=== PATIENT | male | born 1935 | race Caucasian/White ===

== ENCOUNTER 2017-07-22 19:22 | Emergency (ER) | payer MEDICARE, BC, OTHER, SELFPAY ==
[2017-07-22 19:44] VITALS: BP 170/78; PULSE 68; RESP 20; TEMP 37.3; O2SAT 99; BMI 24.3
[2017-07-22 21:12] LABS: BUN Creatinine Ratio 8.9 (6-22); Calcium 8.8 mg/dL (8.4-10.2); Estimated Glomerular Filt Rate 21.8 mL/min (>60); Glucose 77 mg/dL (80-110); HEMOLYSIS < 15 (0-50); Potassium 3.8 mmol/L (3.4-5.1); Sodium 142 mmol/L (137-145)
[2017-07-22 21:16] LABS: Add Manual Diff / Slide Review NO; Basophils Percent Auto 1.1 % (0-2); Eosinophils Percent Auto 3.6 % (2-4); Hematocrit 21.4 % (41-53); Hemoglobin 7.5 g/dL (13.5-17.5); Lymphocytes Percent Auto 16.5 % (25-40); Mean Corpuscular Hemoglobin 32.2 PG (26-34); Mean Corpuscular Volume 92.1 fL (80-100); Monocytes Percent Auto 7.9 % (3-14); Neutrophils Absolute Auto 5500 /uL (3000-5900); Neutrophils Percent Auto 70.9 % (50-75); Platelet Count 64 X10^3/uL (150-400); Red Blood Cell Count 2.33 X10^6/uL (4.5-5.9); Red Cell Distribution Width 19.1 % (11.6-14.8); White Blood Cell Count 7.8 X10^3/uL (4.5-11.0)
[2017-07-22 22:00] VITALS: BP 156/67; PULSE 73; RESP 16; TEMP 36.4
[2017-07-22 22:22] VITALS: BP 150/74; PULSE 94; RESP 16; TEMP 36.9
[2017-07-22 23:15] VITALS: BP 165/76; PULSE 75; RESP 16; TEMP 36.8
[2017-07-23 00:21] VITALS: BP 150/71; PULSE 69; RESP 16; O2SAT 93
[2017-07-23 00:49] VITALS: BP 153/68; PULSE 69; RESP 16; O2SAT 94
--- NOTE | 2017-07-23 01:33 | ED.WEAKNESS ---
HPI - Weakness General Chief complaint: Weakness Stated complaint: RENAL DIALYSIS PT LOW HEMOGLOBIN TEST TODAY History of Present Illness HPI Narrative: HPI 82-year-old male with chronic anemia secondary to CKD now on M// HD presents for transfusion after a hemoglobin from HD was resulted at 6; endorses gradually progressive fatigue. No apparent dark tarry stools, no chest pain, shortness breath, history of DVT or PE. M/S/F/SocHx notable for: please see HPI; remainder reviewed with patient and in chart. ROS: Negative constitutional, eye, cardiovascular, pulmonary, GI, , MSK, skin, neurologic, psychiatric, endocrine unless noted in the HPI. Exam Gen: Pleasant, non-toxic appearing, resting comfortably. HEENT: NC, AT, PEERL, EOMI. Resp: Clear to auscultation bilaterally, normal work of breathing, no accessory muscle usage. Card: Regular rate and rhythm with no murmurs, rubs, or gallops, extremities warm and well perfused. GI: Non-tender to palpation throughout all quadrants, no focal tenderness at McBurney's point, negative Pnadya's sign, non-distended, no rebound or guarding. : No suprapubic tenderness to palpation. MSK: No visible deformities, strength and tone without visually appreciable deficit. Skin: markedly pale skin, otherwise color with no visible lesions. Neuro: AO x 3, no facial asymmetry, vision and hearing WNL. Psych: Mood and affect appropriate. Labs / Imaging: WBC 10.8, HB 7.5, sodium 142, potassium 3.2. MDM Previous chart, nursing note, labs, imaging, and vitals reviewed. A: 82-year-old male with chronic anemia secondary to CKD now on M/W/F HD presents for transfusion after a hemoglobin from HD was resulted at 6; endorses gradually progressive fatigue. DDx & Evaluation: patient with symptomatic anemia, based upon recent, and still pertinent labs, when unit PRBCs was given, pretransfusion hemoglobin resulted at 7.5. No further PRBCs given. Patient discharged with PCP follow-up for further management of chronic anemia. Given history with an absence of chest pain, shortness breath, cough, or dyspnea on exertion as well as gradual progressive weakness consistent with the patient's long-standing pattern of weakness in the setting of anemia no further emergent evaluation located. Further evaluation deferred to the patient's PCP. Impression: anemia. (please reference below for remainder of encounter information) Related Data Home Medications Medication Instructions Recorded Confirmed allopurinol 150 mg PO Q DAY #0 10/10/12 lansoprazole 30 mg PO AMCC #0 10/10/12 sildenafil [Viagra] 100 mg PO QDAYP #0 10/10/12 nitroglycerin [Nitrostat] 0.4 mg SUBLINGUAL PRN PRN #0 tab 12/17/12 calcitriol 0.5 mcg PO QDAY #0 08/07/16 sodium bicarbonate 650 mg PO #0 04/24/17 Allergies Allergy/AdvReac Type Severity Reaction Status Date / Time Iodinated Contrast- Oral and Allergy Severe kidney Verified 07/22/17 19:50 IV Dye failure [IODINATED CONTRAST MEDIA - ORAL AND] oxycodone Allergy Mild face Verified 07/22/17 19:50 flushed, feels funny lisinopril AdvReac Severe COUGH, Verified 07/22/17 19:50 facial swelling PFSH Medical History Colon cancer (Acute) HTN (hypertension) (Acute) Kidney failure (Acute) Surgical History History of open heart surgery (Acute) Social History Smoking Status: Never smoker Exam Initial Vital Signs Initial Vital Signs: Vital Signs Temperature 99.2 F 07/22/17 19:44 Pulse Rate 68 07/22/17 19:44 Respiratory Rate 20 07/22/17 19:44 Blood Pressure 170/78 H 07/22/17 19:44 Pulse Oximetry 99 07/22/17 19:44 Course Orders Ordered: ED Orders 07/22/17 19:40 Basic Metabolic Panel Stat Complete Blood Count AUTO DIFF Stat Packed Cells Urgent Type and Screen Urgent Vital Signs - 8 hr 07/22/17 19:44 07/22/17 22:00 07/22/17 22:22 Temperature 99.2 F 97.5 F L 98.4 F Pulse Rate 68 73 94 H Respiratory Rate 20 16 16 Blood Pressure 170/78 H 156/67 H 150/74 H Blood Pressure [Left Arm] Pulse Oximetry 99 07/22/17 23:15 07/23/17 00:21 07/23/17 00:49 Temperature 98.2 F Pulse Rate 75 69 69 Respiratory Rate 16 16 16 Blood Pressure 165/76 H 153/68 H Blood Pressure [Left Arm] 150/71 H Pulse Oximetry 93 94 MDM - Weakness Lab Data Result diagrams: 07/22/17 19:40 07/22/17 19:40 Lab Results 07/22/17 07/22/17 07/22/17 Range/Units 19:40 19:40 19:40 WBC 7.8 (4.5-11.0) X10^3/uL RBC 2.33 L (4.5-5.9) X10^6/uL Hgb 7.5 L (13.5-17.5) g/dL Hct 21.4 L (41-53) % MCV 92.1 (80-100) fL MCH 32.2 (26-34) PG MCHC 35.0 (30-36) % RDW 19.1 H (11.6-14.8) % Plt Count 64 L (150-400) X10^3/uL Neut % (Auto) 70.9 (50-75) % Lymph % (Auto) 16.5 L (25-40) % Prentiss % (Auto) 7.9 (3-14) % Eos % (Auto) 3.6 (2-4) % Baso % (Auto) 1.1 (0-2) % Neut # (Auto) 5500 (9238-8306) /uL Sodium 142 (137-145) mmol/L Potassium 3.8 (3.4-5.1) mmol/L Chloride 101.0 (98-107) mmol/L Carbon Dioxide 28.0 (22-32) mmol/L BUN 25.0 H (9-20) mg/dL Creatinine 2.80 H (0.66-1.25) mg/dL Estimated GFR 21.8 L (>60) mL/min BUN/Creatinine Ratio 8.9 (6-22) Glucose 77 L (80-110) mg/dL Calcium 8.8 (8.4-10.2) mg/dL Blood Type A Positive Antibody Screen Negative Crossmatch (AHG) See Detail Discharge Plan Departure Patient Disposition: Home, Self-Care Clinical Impression: Anemia Discharge Date/Time: 07/23/17 00:51 Interventions: ED Discharge Assessment Last Done: 07/23/17 00:49 Activity Restrictions/Additional Instructions: You were in seen in the [facility] Emergency Department for evaluation of anemia. You were found to be anemic and on the threshold of requiring a blood transfusion. Please follow-up with your primary care provider within 24-48 hours for further evaluation and care. Please read and follow all of the instructions below. If you have any new symptoms or if you are at all concerned about your health please return immediately to the emergency department. If you do not have a primary care physician, please contact [facility], [facility] at [phone], [facility] at [phone], or [facility] at [phone] to arrange follow up care. If you have health insurance, please also contact your insurer for a list of accepting providers under your policy, you may contact these providers for further health care. Your care today was limited to identifying and treating emergent medical problems only. Many people have subtle differences in their test results that require follow up with their outpatient physician(s) to correctly determine if this represents a normal variation or concerning abnormality with respect to your specific health. The care given to you today was limited to identifying and treating emergent medical problems - you need to request a copy of all of your medical records from today's visit and follow up with your outpatient physician(s) to review both today's visit and your overall health. Prescriptions: No Action allopurinol 300 MG tablet 150 mg PO Q DAY Qty: 0 RF: 0 sildenafil [Viagra] 100 MG tablet 100 mg PO QDAYP Qty: 0 RF: 0 lansoprazole 30 MG capsule,delayed release(DR/EC) 30 mg PO AMCC Qty: 0 RF: 0 nitroglycerin [Nitrostat] 0.4 MG tablet, sublingual 0.4 mg Sublingual PRN PRNQty: 0 RF: 0 calcitriol 0.5 MCG capsule 0.5 mcg PO QDAY Qty: 0 RF: 0 sodium bicarbonate 650 MG tablet 650 mg PO Qty: 0 RF: 0
== END 2017-07-23 00:51 | disposition home or self-care (01) ==
PROVIDERS: Emergency Provider Emergency Medicine; Family Provider Internal Medicine; PCP Internal Medicine
DX: D64.9 Anemia, unspecified (principal)
CPT/HCPCS: 36430; 36591; 80048; 85025; 86850; 86900; 86901; 93005; 99282; 99283; P9016

== ENCOUNTER 2017-07-24 04:56 | Emergency (ER) | payer MEDICARE, BC, OTHER, SELFPAY ==
[2017-07-24] VITALS (8 sets, daily range): BP systolic 131–167; BP diastolic 69–80; PULSE 74–89; RESP 19–27; TEMP 36.9; O2SAT 98–100
--- NOTE | 2017-07-24 05:22 | ED.SOB ---
HPI - SOB/Dyspnea General Chief Complaint: Upper Respiratory Symptoms Stated Complaint: Difficulty Breathing Time Seen by Provider: 07/24/17 05:03 Source: patient and EMS Mode of arrival: EMS Limitations: no limitations History of Present Illness 82-year-old male presents to the emergency department today via EMS with a chief complaint of significant shortness of breath, worsening over the evening. 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 Mccollum at [facility]. He was seen and evaluated here 2 days ago under similar circumstances and was found to have a hemoglobin 6, he then received transfusion and went on his way. The patient states that historically he had received weekly infusions of Aranesp during dialysis and his baseline hemoglobin was 11. For some reason, he has not received this infusion in quite sometime. He was found by EMS to be quite SOB and had SpO2 in mid 80s, which quickly improved with application of NC at 2L/min. MD Complaint: shortness of breath Onset (ago): hour(s) Severity: moderate Consistency/Duration: constant Relieving factors: oxygen Exacerbating factors: lying flat Associated symptoms: denies other symptoms Treatment prior to arrival: oxygen Related Data Home oxygen amount: none Home Medications Medication Instructions Recorded Confirmed allopurinol 150 mg PO Q DAY #0 10/10/12 lansoprazole 30 mg PO [facility] #0 10/10/12 sildenafil [Viagra] 100 mg PO QDAYP #0 10/10/12 nitroglycerin [Nitrostat] 0.4 mg SUBLINGUAL PRN PRN #0 tab 12/17/12 calcitriol 0.5 mcg PO QDAY #0 08/07/16 sodium bicarbonate 650 mg PO #0 04/24/17 Allergies Allergy/AdvReac Type Severity Reaction Status Date / Time Iodinated Contrast- Oral and Allergy Severe kidney Verified 07/22/17 19:50 IV Dye failure [IODINATED CONTRAST MEDIA - ORAL AND] oxycodone Allergy Mild face Verified 07/22/17 19:50 flushed, feels funny lisinopril AdvReac Severe COUGH, Verified 07/22/17 19:50 facial swelling Review of Systems Review of Systems All systems reviewed & are unremarkable except as noted in HPI and below Constitutional Denies chills, Denies fever(s), Denies lethargy and Denies weakness Eyes Denies change in vision, Denies eye discharge, Denies irritation and Denies loss of vision ENT Ears, Nose, Mouth, and Throat: Denies change in voice, Denies neck pain and Denies sore throat Cardiovascular Denies chest pain, Denies irregular heart rhythm, Denies lightheadedness, Denies palpitations, Reports dyspnea, Reports dyspnea on exertion and Denies orthopnea Respiratory Denies cough, Reports dyspnea, Reports dyspnea on exertion and Denies wheezing Gastrointestinal Gastrointestinal: Denies abdominal pain, Denies change in bowel habits, Denies diarrhea, Denies nausea and Denies vomiting Genitourinary Denies hematuria, Denies flank pain, Denies urinary incontinence and Denies urinary urgency Musculoskeletal Denies neck pain Integumentary/Breasts Denies pruritus, Denies erythema, Denies rash and Denies wounds Neurologic Denies confusion, Denies loss of vision and Denies weakness Psychiatric Denies anxiety, Denies confusion, Denies depression, Denies homicidal ideation and Denies suicidal ideation Endocrine Denies palpitations Hematologic/Lymphatic Denies easy bruising Allergic/Immunologic Denies wheezing PFSH Medical History CAD (coronary artery disease) (Acute) Colon cancer (Acute) HTN (hypertension) (Acute) Kidney failure (Acute) Surgical History Hx of CABG (Acute) History of open heart surgery (Acute) Social History Smoking Status: Never smoker Exam Initial Vital Signs Initial Vital Signs: Vital Signs Temperature 98.5 F 07/24/17 05:10 Pulse Rate 89 07/24/17 05:10 Respiratory Rate 24 07/24/17 05:10 Blood Pressure 166/76 H 07/24/17 05:10 Pulse Oximetry 99 07/24/17 05:10 Const General: cooperative, comfortable, well developed and in distress Nutritional Appearance: well nourished Orientation: alert, awake, oriented x3 and not confused [facility] Head: normocephalic and atraumatic Ears: external ears normal and TM's normal bilaterally Nose: external nose normal and No nasal discharge Face and sinus: sinuses nontender, face symmetric, no sinus tenderness and No dry mucous membranes Mouth: oral mucosae normal and moist mucous membranes Teeth and gingiva: dentition normal Throat: tonsils normal and uvula midline Eyes General: appearance normal, both eyes and all related structures Eyelids: eyelids normal Conjunctivae: conjunctival abnormality (pale) bilaterally Sclera: sclerae normal Pupils: PERRL EOM: EOM intact bilaterally Neck Neck: normal visual inspection, trachea midline, No lymphadenopathy, No midline deformity and No JVD Lymphatic: No lymphedema Resp Effort & Inspection: normal respiratory effort, able to speak in complete sentences, no respiratory distress and no use of accessory muscles Auscultation: diminished lung sounds, rales bilaterally, no rhonchi and no wheezes Cardio Rate: regular rate Rhythm: regular rhythm Heart Sounds: no click, no gallops, no murmurs and no rubs Pulses: normal peripheral pulses GI Inspection: non-distended Palpation: soft, no hepatosplenomegaly, No guarding, No pulsatile mass and No tender Auscultation: normal bowel sounds Back/Spine/Pelvis Back: No CVA tenderness Cervical Spine: cervical ROM normal and No pain with cervical ROM Thoracic/Lumbar Spine: thoracic and lumbar spine normal to inspection Skin General: no rashes or lesions noted, No jaundice and No petechiae Neuro General: alert, oriented x3, gait normal and no focal motor deficits Speech: speech normal Extrem General: full ROM, no clubbing, cyanosis or edema, no pedal edema and no calf tenderness Course Orders Ordered: ED Orders 07/24/17 05:25 B Type Natriuretic Peptide Stat Basic Metabolic Panel Stat Complete Blood Count AUTO DIFF Stat Magnesium Stat Procalcitonin Stat Troponin with CK Cardiac Panel Stat Type and Screen Stat 07/24/17 05:32 EKG-12 Lead Stat 07/24/17 06:00 XR chest 1V Stat Reevaluation(s) Reevaluation #1: call to Dr. Mccollum (nephrology) whom recommends hospitalization for stablization of his acute failure. There are no beds a [facility] nor [facility] and as the result we called [facility]'s Consultations Consultation #1: Call to Dr. Mccollum nephrology regarding this patient. He is happy with Hgb of 8.2 but recommends HD given signs of fluid overload and his baseline schedule Consultation #2: Dr. Méndez (Nephrology at [place]) is happy to be involved in consult, but asks that I contact hospitalist Consultation #3: Dr. Tatum (hospitalist [facility]) happy to accept. Time: 07:15 Vital Signs - 8 hr 07/24/17 05:10 07/24/17 05:30 07/24/17 05:38 Temperature 98.5 F Pulse Rate 89 79 80 Respiratory Rate 24 24 24 Blood Pressure 166/76 H Blood Pressure [Left Arm] 151/73 H 167/80 H Pulse Oximetry 99 98 99 07/24/17 06:15 07/24/17 07:30 07/24/17 08:35 Temperature Pulse Rate 78 74 75 Respiratory Rate 22 22 19 Blood Pressure Blood Pressure [Left Arm] 157/80 H 131/80 H 151/77 H Pulse Oximetry 99 100 99 MDM - SOB/Dyspnea Lab Data Attestation: I reviewed the patient's lab results. Result diagrams: 07/24/17 05:25 07/24/17 05:25 Lab Results 07/24/17 07/24/17 07/24/17 Range/Units 05:25 05:25 05:25 WBC 12.2 H D (4.5-11.0) X10^3/uL RBC 2.58 L (4.5-5.9) X10^6/uL Hgb 8.2 L (13.5-17.5) g/dL Hct 23.7 L (41-53) % MCV 92.2 (80-100) fL MCH 31.9 (26-34) PG MCHC 34.6 (30-36) % RDW 18.8 H (11.6-14.8) % Plt Count 59 L (150-400) X10^3/uL Neut % (Auto) 83.5 H (50-75) % Lymph % (Auto) 6.6 L (25-40) % Haines % (Auto) 7.1 (3-14) % Eos % (Auto) 2.4 (2-4) % Baso % (Auto) 0.4 (0-2) % Neut # (Auto) 61150 H (4969-8090) /uL Sodium 138 (137-145) mmol/L Potassium 4.3 (3.4-5.1) mmol/L Chloride 101.0 (98-107) mmol/L Carbon Dioxide 23.0 (22-32) mmol/L BUN 40.0 H (9-20) mg/dL Creatinine 5.10 H (0.66-1.25) mg/dL Estimated GFR 10.9 L (>60) mL/min BUN/Creatinine Ratio 7.8 (6-22) Glucose 110 (80-110) mg/dL Calcium 8.6 (8.4-10.2) mg/dL Magnesium 1.9 (1.6-2.3) mg/dL Total Creatine Kinase 74 (55-170) U/L Troponin I 0.025 (0.01-0.034) ng/mL B-Natriuretic Peptide 1320.0 (<100) Procalcitonin 0.12 (<0.5) ng/mL Blood Type Antibody Screen 07/24/17 Range/Units 05:25 WBC (4.5-11.0) X10^3/uL RBC (4.5-5.9) X10^6/uL Hgb (13.5-17.5) g/dL Hct (41-53) % MCV (80-100) fL MCH (26-34) PG MCHC (30-36) % RDW (11.6-14.8) % Plt Count (150-400) X10^3/uL Neut % (Auto) (50-75) % Lymph % (Auto) (25-40) % Haines % (Auto) (3-14) % Eos % (Auto) (2-4) % Baso % (Auto) (0-2) % Neut # (Auto) (9921-8684) /uL Sodium (137-145) mmol/L Potassium (3.4-5.1) mmol/L Chloride (98-107) mmol/L Carbon Dioxide (22-32) mmol/L BUN (9-20) mg/dL Creatinine (0.66-1.25) mg/dL Estimated GFR (>60) mL/min BUN/Creatinine Ratio (6-22) Glucose (80-110) mg/dL Calcium (8.4-10.2) mg/dL Magnesium (1.6-2.3) mg/dL Total Creatine Kinase (55-170) U/L Troponin I (0.01-0.034) ng/mL B-Natriuretic Peptide (<100) Procalcitonin (<0.5) ng/mL Blood Type A Positive Antibody Screen Negative Imaging Data Chest x-ray: My impression: small R pleural effusion, pulmonary edema Radiologist's impression: ECG Data Attestation: I personally reviewed and interpreted this ECG as follows: Prior ECG tracings: available for review Interpretation: NSR without ectopy. Rate 82. No ST elevation/depression, No T wave abnormalities Critical Care Time Critical Care Time: Yes Total Critical Care Time: 30 Attestation: Critical care time is separate from other billable procedures. This critical care time includes consultation with family and other consulting doctors, review of records, and interpretation of data from labs, EKGs, imaging, etc. Discharge Plan Departure Patient Disposition: [facility] Clinical Impression: Pulmonary edema, Acute CHF Interventions: ED Discharge Assessment Last Done: 07/24/17 08:16 Prescriptions: No Action allopurinol 300 MG tablet 150 mg PO Q DAY Qty: 0 RF: 0 sildenafil [Viagra] 100 MG tablet 100 mg PO QDAYP Qty: 0 RF: 0 lansoprazole 30 MG capsule,delayed release(DR/EC) 30 mg PO AMCC Qty: 0 RF: 0 nitroglycerin [Nitrostat] 0.4 MG tablet, sublingual 0.4 mg Sublingual PRN PRNQty: 0 RF: 0 calcitriol 0.5 MCG capsule 0.5 mcg PO QDAY Qty: 0 RF: 0 sodium bicarbonate 650 MG tablet 650 mg PO Qty: 0 RF: 0
--- NOTE | 2017-07-24 05:28 | ED_ITS ---
HPI - SOB/Dyspnea General Chief Complaint: Upper Respiratory Symptoms Stated Complaint: Difficulty Breathing Time Seen by Provider: 07/24/17 05:03 Source: patient and EMS Mode of arrival: EMS Limitations: no limitations History of Present Illness 82-year-old male presents to the emergency department today via EMS with a chief complaint of significant shortness of breath, worsening over the evening. 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 Mccollum at [facility]. He was seen and evaluated here 2 days ago under similar circumstances and was found to have a hemoglobin 6, he then received transfusion and went on his way. The patient states that historically he had received weekly infusions of Aranesp during dialysis and his baseline hemoglobin was 11. For some reason, he has not received this infusion in quite sometime. He was found by EMS to be quite SOB and had SpO2 in mid 80s, which quickly improved with application of NC at 2L/ min. MD Complaint: shortness of breath Onset (ago): hour(s) Severity: moderate Consistency/Duration: constant Relieving factors: oxygen Exacerbating factors: lying flat Associated symptoms: denies other symptoms Treatment prior to arrival: oxygen Related Data Home oxygen amount: none Home Medications Medication Instructions Recorded Confirmed allopurinol 150 mg PO Q DAY #0 10/10/12 lansoprazole 30 mg PO [facility] #0 10/10/12 sildenafil [Viagra] 100 mg PO QDAYP #0 10/10/12 nitroglycerin [Nitrostat] 0.4 mg SUBLINGUAL PRN PRN #0 tab 12/17/12 calcitriol 0.5 mcg PO QDAY #0 08/07/16 sodium bicarbonate 650 mg PO #0 04/24/17 Allergies Allergy/AdvReac Type Severity Reaction Status Date / Time Iodinated Contrast- Oral and Allergy Severe kidney Verified 07/22/17 19:50 IV Dye failure [IODINATED CONTRAST MEDIA - ORAL AND] oxycodone Allergy Mild face Verified 07/22/17 19:50 flushed, feels funny lisinopril AdvReac Severe COUGH, Verified 07/22/17 19:50 facial swelling Review of Systems Review of Systems All systems reviewed & are unremarkable except as noted in HPI and below Constitutional Denies chills, Denies fever(s), Denies lethargy and Denies weakness Eyes Denies change in vision, Denies eye discharge, Denies irritation and Denies loss of vision ENT Ears, Nose, Mouth, and Throat: Denies change in voice, Denies neck pain and Denies sore throat Cardiovascular Denies chest pain, Denies irregular heart rhythm, Denies lightheadedness, Denies palpitations, Reports dyspnea, Reports dyspnea on exertion and Denies orthopnea Respiratory Denies cough, Reports dyspnea, Reports dyspnea on exertion and Denies wheezing Gastrointestinal Gastrointestinal: Denies abdominal pain, Denies change in bowel habits, Denies diarrhea, Denies nausea and Denies vomiting Genitourinary Denies hematuria, Denies flank pain, Denies urinary incontinence and Denies urinary urgency Musculoskeletal Denies neck pain Integumentary/Breasts Denies pruritus, Denies erythema, Denies rash and Denies wounds Neurologic Denies confusion, Denies loss of vision and Denies weakness Psychiatric Denies anxiety, Denies confusion, Denies depression, Denies homicidal ideation and Denies suicidal ideation Endocrine Denies palpitations Hematologic/Lymphatic Denies easy bruising Allergic/Immunologic Denies wheezing PFSH Medical History CAD (coronary artery disease) (Acute) Colon cancer (Acute) HTN (hypertension) (Acute) Kidney failure (Acute) Surgical History Hx of CABG (Acute) History of open heart surgery (Acute) Social History Smoking Status: Never smoker Exam Initial Vital Signs Initial Vital Signs: Vital Signs Temperature 98.5 F 07/24/17 05:10 Pulse Rate 89 07/24/17 05:10 Respiratory Rate 24 07/24/17 05:10 Blood Pressure 166/76 H 07/24/17 05:10 Pulse Oximetry 99 07/24/17 05:10 Const General: cooperative, comfortable, well developed and in distress Nutritional Appearance: well nourished Orientation: alert, awake, oriented x3 and not confused [facility] Head: normocephalic and atraumatic Ears: external ears normal and TM's normal bilaterally Nose: external nose normal and No nasal discharge Face and sinus: sinuses nontender, face symmetric, no sinus tenderness and No dry mucous membranes Mouth: oral mucosae normal and moist mucous membranes Teeth and gingiva: dentition normal Throat: tonsils normal and uvula midline Eyes General: appearance normal, both eyes and all related structures Eyelids: eyelids normal Conjunctivae: conjunctival abnormality (pale) bilaterally Sclera: sclerae normal Pupils: PERRL EOM: EOM intact bilaterally Neck Neck: normal visual inspection, trachea midline, No lymphadenopathy, No midline deformity and No JVD Lymphatic: No lymphedema Resp Effort & Inspection: normal respiratory effort, able to speak in complete sentences, no respiratory distress and no use of accessory muscles Auscultation: diminished lung sounds, rales bilaterally, no rhonchi and no wheezes Cardio Rate: regular rate Rhythm: regular rhythm Heart Sounds: no click, no gallops, no murmurs and no rubs Pulses: normal peripheral pulses GI Inspection: non-distended Palpation: soft, no hepatosplenomegaly, No guarding, No pulsatile mass and No tender Auscultation: normal bowel sounds Back/Spine/Pelvis Back: No CVA tenderness Cervical Spine: cervical ROM normal and No pain with cervical ROM Thoracic/Lumbar Spine: thoracic and lumbar spine normal to inspection Skin General: no rashes or lesions noted, No jaundice and No petechiae Neuro General: alert, oriented x3, gait normal and no focal motor deficits Speech: speech normal Extrem General: full ROM, no clubbing, cyanosis or edema, no pedal edema and no calf tenderness Course Orders Ordered: ED Orders 07/24/17 05:25 B Type Natriuretic Peptide Stat Basic Metabolic Panel Stat Complete Blood Count AUTO DIFF Stat Magnesium Stat Procalcitonin Stat Troponin with CK Cardiac Panel Stat Type and Screen Stat 07/24/17 05:32 EKG-12 Lead Stat 07/24/17 06:00 XR chest 1V Stat Reevaluation(s) Reevaluation #1: call to Dr. Mccollum (nephrology) whom recommends hospitalization for stablization of his acute failure. There are no beds a [facility] nor [facility] and as the result we called [facility]'s Consultations Consultation #1: Call to Dr. Mccollum nephrology regarding this patient. He is happy with Hgb of 8.2 but recommends HD given signs of fluid overload and his baseline schedule Consultation #2: Dr. Méndez (Nephrology at [place]) is happy to be involved in consult, but asks that I contact hospitalist Consultation #3: Dr. Tatum (hospitalist [facility]) happy to accept. Time: 07:15 Vital Signs - 8 hr 07/24/17 05:10 07/24/17 05:30 07/24/17 05:38 Temperature 98.5 F Pulse Rate 89 79 80 Respiratory Rate 24 24 24 Blood Pressure 166/76 H Blood Pressure [Left Arm] 151/73 H 167/80 H Pulse Oximetry 99 98 99 07/24/17 06:15 07/24/17 07:30 07/24/17 08:35 Temperature Pulse Rate 78 74 75 Respiratory Rate 22 22 19 Blood Pressure Blood Pressure [Left Arm] 157/80 H 131/80 H 151/77 H Pulse Oximetry 99 100 99 MDM - SOB/Dyspnea Lab Data Attestation: I reviewed the patient's lab results. Result diagrams: 07/24/17 05:25 07/24/17 05:25 Lab Results 07/24/17 07/24/17 07/24/17 Range/Units 05:25 05:25 05:25 WBC 12.2 H D (4.5-11.0) X10^3/uL RBC 2.58 L (4.5-5.9) X10^6/uL Hgb 8.2 L (13.5-17.5) g/dL Hct 23.7 L (41-53) % MCV 92.2 (80-100) fL MCH 31.9 (26-34) PG MCHC 34.6 (30-36) % RDW 18.8 H (11.6-14.8) % Plt Count 59 L (150-400) X10^3/uL Neut % (Auto) 83.5 H (50-75) % Lymph % (Auto) 6.6 L (25-40) % [place] % (Auto) 7.1 (3-14) % Eos % (Auto) 2.4 (2-4) % Baso % (Auto) 0.4 (0-2) % Neut # (Auto) 94236 H (5526-9332) /uL Sodium 138 (137-145) mmol/L Potassium 4.3 (3.4-5.1) mmol/L Chloride 101.0 (98-107) mmol/L Carbon Dioxide 23.0 (22-32) mmol/L BUN 40.0 H (9-20) mg/dL Creatinine 5.10 H (0.66-1.25) mg/dL Estimated GFR 10.9 L (>60) mL/min BUN/Creatinine Ratio 7.8 (6-22) Glucose 110 (80-110) mg/dL Calcium 8.6 (8.4-10.2) mg/dL Magnesium 1.9 (1.6-2.3) mg/dL Total Creatine Kinase 74 (55-170) U/L Troponin I 0.025 (0.01-0.034) ng/mL B-Natriuretic Peptide 1320.0 (<100) Procalcitonin 0.12 (<0.5) ng/mL Blood Type Antibody Screen 07/24/17 Range/Units 05:25 WBC (4.5-11.0) X10^3/uL RBC (4.5-5.9) X10^6/uL Hgb (13.5-17.5) g/dL Hct (41-53) % MCV (80-100) fL MCH (26-34) PG MCHC (30-36) % RDW (11.6-14.8) % Plt Count (150-400) X10^3/uL Neut % (Auto) (50-75) % Lymph % (Auto) (25-40) % [place] % (Auto) (3-14) % Eos % (Auto) (2-4) % Baso % (Auto) (0-2) % Neut # (Auto) (8201-4687) /uL Sodium (137-145) mmol/L Potassium (3.4-5.1) mmol/L Chloride (98-107) mmol/L Carbon Dioxide (22-32) mmol/L BUN (9-20) mg/dL Creatinine (0.66-1.25) mg/dL Estimated GFR (>60) mL/min BUN/Creatinine Ratio (6-22) Glucose (80-110) mg/dL Calcium (8.4-10.2) mg/dL Magnesium (1.6-2.3) mg/dL Total Creatine Kinase (55-170) U/L Troponin I (0.01-0.034) ng/mL B-Natriuretic Peptide (<100) Procalcitonin (<0.5) ng/mL Blood Type A Positive Antibody Screen Negative Imaging Data Chest x-ray: My impression: small R pleural effusion, pulmonary edema Radiologist's impression: ECG Data Attestation: I personally reviewed and interpreted this ECG as follows: Prior ECG tracings: available for review Interpretation: NSR without ectopy. Rate 82. No ST elevation/depression, No T wave abnormalities Critical Care Time Critical Care Time: Yes Total Critical Care Time: 30 Attestation: Critical care time is separate from other billable procedures. This critical care time includes consultation with family and other consulting doctors, review of records, and interpretation of data from labs, EKGs, imaging , etc. Discharge Plan Departure Patient Disposition: [facility] Clinical Impression: Pulmonary edema, Acute CHF Interventions: ED Discharge Assessment Last Done: 07/24/17 08:16 Prescriptions: No Action allopurinol 300 MG tablet 150 mg PO Q DAY Qty: 0 RF: 0 sildenafil [Viagra] 100 MG tablet 100 mg PO QDAYP Qty: 0 RF: 0 lansoprazole 30 MG capsule,delayed release(DR/EC) 30 mg PO [facility] Qty: 0 RF: 0 nitroglycerin [Nitrostat] 0.4 MG tablet, sublingual 0.4 mg Sublingual PRN PRNQty: 0 RF: 0 calcitriol 0.5 MCG capsule 0.5 mcg PO QDAY Qty: 0 RF: 0 sodium bicarbonate 650 MG tablet 650 mg PO Qty: 0 RF: 0
[2017-07-24 05:46] LABS: Add Manual Diff / Slide Review NO; Basophils Percent Auto 0.4 % (0-2); Eosinophils Percent Auto 2.4 % (2-4); Hematocrit 23.7 % (41-53); Hemoglobin 8.2 g/dL (13.5-17.5); Lymphocytes Percent Auto 6.6 % (25-40); Mean Corpuscular HGB Conc 34.6 % (30-36); Mean Corpuscular Hemoglobin 31.9 PG (26-34); Mean Corpuscular Volume 92.2 fL (80-100); Monocytes Percent Auto 7.1 % (3-14); Neutrophils Absolute Auto 10200 /uL (3000-5900); Neutrophils Percent Auto 83.5 % (50-75); Platelet Count 59 X10^3/uL (150-400); Red Blood Cell Count 2.58 X10^6/uL (4.5-5.9); Red Cell Distribution Width 18.8 % (11.6-14.8); White Blood Cell Count 12.2 X10^3/uL (4.5-11.0)
--- NOTE | 2017-07-24 06:00 | DI.RAD.S_ITS ---
PROCEDURE: XR CHEST 1V INDICATIONS: Shortness of breath TECHNIQUE: One view of the chest was acquired. COMPARISON: [facility], CHEST 2 VIEW, 06/17/2017, 8:57. [facility], CHEST 2 VIEW, 03/29/2016, 14:32. [facility], CHEST 2 VIEW, 07/15/2015, 9:33. FINDINGS: Surgical changes and devices: Sternotomy wires, presumed prior CABG. Lungs and pleura: No pleural effusions or pneumothorax. Lungs are mildly edematous. Mediastinum: Mediastinal contours appear normal. Heart size is mildly enlarged. Bones and chest wall: No suspicious bony lesions. Overlying soft tissues appear unremarkable. IMPRESSION: Prior CABG, mild pulmonary edema and cardiomegaly, suspect acute congestive heart failure as cause of the findings discussed above. Dictated by: Kevin Ogden M.D. on 07/24/2017 at 8:42 Approved by: Kevin Ogden M.D. on 07/24/2017 at 8:43
[2017-07-24 06:12] LABS: Procalcitonin 0.12 ng/mL (<0.5)
[2017-07-24 06:16] LABS: BUN Creatinine Ratio 7.8 (6-22); Calcium 8.6 mg/dL (8.4-10.2); Creatine Kinase 74 U/L (55-170); Estimated Glomerular Filt Rate 10.9 mL/min (>60); Glucose 110 mg/dL (80-110); HEMOLYSIS < 15 (0-50); Magnesium 1.9 mg/dL (1.6-2.3); Potassium 4.3 mmol/L (3.4-5.1); Sodium 138 mmol/L (137-145)
[2017-07-24 06:27] LABS: Troponin I 0.025 ng/mL (0.01-0.034)
--- NOTE | 2017-07-24 08:17 | PC.NURSE ---
pt alert and awake, nad. states, feeling fine at rest. denies chest pain, shortness of breath, nausea or vomiting at this time verbal understanding plan of care pt reports last dialysis saturday, due today at 3pm at local center, but pt transferring to [facility]. right arm with echymosis and swelling, states, had difficult time accessing the last time +bruit and +thrill, +dcms intact breath sound clear through out, no pedal edema noted, 02 at 3lpm via nc. but reports bilateral hands edema.
== END 2017-07-24 09:58 | disposition short-term general hospital (02) ==
PROVIDERS: Emergency Medicine; Emergency Provider Student in an Organized Health Care Education/Training Program; Family Provider Internal Medicine; PCP Internal Medicine
DX: J81.1 Chronic pulmonary edema (principal); I50.9 Heart failure, unspecified
CPT/HCPCS: 36591; 71045; 80048; 81003; 82550; 82553; 83735; 83880; 84145; 84484; 85025; 86850; 86900; 86901; 93005; 99285

== ENCOUNTER 2019-06-17 12:33 | Emergency (ER) | payer MEDICARE, BC, OTHER, SELFPAY ==
[2019-06-17 12:35] VITALS: BP 174/87; PULSE 71; RESP 16; TEMP 36.9; O2SAT 100
--- NOTE | 2019-06-17 12:54 | ED_ITS ---
HPI - Recheck/Abnormal Lab/Rx General Chief Complaint: Recheck/Abnormal Lab/Rx Stated Complaint: bleeding Time Seen by Provider: 06/17/19 12:43 Source: patient Mode of arrival: Ambulatory Limitations: no limitations History of Present Illness HPI narrative: 84-year-old male here for evaluation of his right upper arm fistula bleeding. Had dialysis this morning. After dialysis had some problems stopping the bleeding. He is covered with a bandage. Since then he feels like the bleeding has continued. Came into the emergency department for evaluation. Related Data Home Medications Medication Instructions Recorded Confirmed allopurinol 150 mg PO Q DAY #0 10/10/12 lansoprazole 30 mg PO [facility] #0 10/10/12 sildenafil [Viagra] 100 mg PO QDAYP #0 10/10/12 nitroglycerin [Nitrostat] 0.4 mg SUBLINGUAL PRN PRN #0 tab 12/17/12 calcitriol 0.5 mcg PO QDAY #0 08/07/16 sodium bicarbonate 650 mg PO #0 04/24/17 Allergies Allergy/AdvReac Type Severity Reaction Status Date / Time Iodinated Contrast Media Allergy Severe kidney Verified 07/22/17 19:50 [IODINATED CONTRAST MEDIA - failure ORAL AND] oxycodone Allergy Mild face Verified 07/22/17 19:50 flushed, feels funny lisinopril AdvReac Severe COUGH, Verified 07/22/17 19:50 facial swelling Review of Systems Musculoskeletal Comments: Bleeding from his right arm fistula Integumentary/Breasts Comments: Bleeding from his right arm fistula Hematologic/Lymphatic Hematologic/Lymphatic: Denies easy bleeding and Denies easy bruising Patient History Medical History CAD (coronary artery disease) (Acute) Colon cancer (Acute) HTN (hypertension) (Acute) Kidney failure (Acute) Surgical History (Updated 07/24/17 @ 06:46 by Leoncio Garza DO) History of open heart surgery (Acute) Hx of CABG (Acute) Social History Smoking Status: Never smoker Smoking Status: Never smoker Substance Use Type: does not use Exam Initial Vital Signs Initial Vital Signs: Vital Signs Temperature 98.4 F 06/17/19 12:35 Pulse Rate 71 06/17/19 12:35 Respiratory Rate 16 06/17/19 12:35 Blood Pressure 174/87 H 06/17/19 12:35 Pulse Oximetry 100 06/17/19 12:35 Const General: cooperative, healthy appearing, comfortable and well developed Resp Effort & Inspection: normal respiratory effort Skin Other: Thrill felt right upper extremity fistula. His bleeding from 1 of the sites where was cannulated. Extrem General: normal to inspection and capillary refill normal Course Vital Signs Vital signs: Vital Signs - 8 hr 06/17/19 12:35 06/17/19 13:00 06/17/19 14:00 Temperature 98.4 F Pulse Rate 71 71 69 Respiratory Rate 16 19 19 Blood Pressure 174/87 H Blood Pressure [Left Arm] 164/77 H 161/81 H Pulse Oximetry 100 100 99 MDM - Recheck/Abnormal Lab/Rx MDM Narrative Medical decision making narrative: Patient was oozing from 1 insertion site in his right upper extremity AV fistula. Compression was attempted but this was unsuccessful. Two 6 0 nylon stitches were placed which did slow the bleeding down quite a bit. It was then covered with Gelfoam and then a compression bandage. He was observed for a short period of time afterwards without any satu ration of the bandage. I feel we should leave the bandage on for now. I feel the patient can be discharged home. He was given return precautions and care instructions and follow-up instructions. He expressed understanding and agreement. Discharge Plan Departure Patient Disposition: Home Clinical Impression: Complication of arteriovenous dialysis fistula Qualifiers: Encounter type: initial encounter Qualified Code(s): T82.9XXA - Unspecified complication of cardiac and vascular prosthetic device, implant and graft, initial encounter Activity Restrictions/Additional Instructions: Keep the bandage on the next 24 hours like we discussed. If if bleeds through the bandage that is currently on there or if it continues to bleed after you take it off tomorrow please return to the emergency department. Keep all of your scheduled dialysis appointments. Return to the emergency department for any new or worsening symptoms like we discussed Prescriptions: No Action allopurinol 300 MG tablet 150 mg PO Q DAY Qty: 0 RF: 0 sildenafil [Viagra] 100 MG tablet 100 mg PO QDAYP Qty: 0 RF: 0 lansoprazole 30 MG capsule,delayed release(DR/EC) 30 mg PO [facility] Qty: 0 RF: 0 nitroglycerin [Nitrostat] 0.4 MG tablet, sublingual 0.4 mg Sublingual PRN PRNQty: 0 RF: 0 calcitriol 0.5 MCG capsule 0.5 mcg PO QDAY Qty: 0 RF: 0 sodium bicarbonate 650 MG tablet 650 mg PO Qty: 0 RF: 0 Referrals: Gino Francis MD [Primary Care Provider] -
[2019-06-17 13:00] VITALS: BP 164/77; PULSE 71; RESP 19; O2SAT 100
--- NOTE | 2019-06-17 13:02 | PC.NURSE ---
pt bleeding from rt upper arm, fistula. applied 4x4's and elastic bandage.
--- NOTE | 2019-06-17 13:13 | PC.NURSE ---
rt radial pulse intact.
[2019-06-17 14:00] VITALS: BP 161/81; PULSE 69; RESP 19; O2SAT 99
[2019-06-17 14:47] VITALS: BP 171/70; PULSE 67; RESP 17; O2SAT 99
== END 2019-06-17 14:48 | disposition home or self-care (01) ==
PROVIDERS: Emergency Provider Emergency Medicine; Family Provider Internal Medicine; PCP Internal Medicine
DX: T82.9XXA Unspecified complication of cardiac and vascular prosthetic device, implant and graft, initial encounter (principal); Z99.2 Dependence on renal dialysis
CPT/HCPCS: 99281

== ENCOUNTER 2019-12-21 10:51 | Emergency (ER) | payer MEDICARE, BC, OTHER, SELFPAY ==
[2019-12-21] VITALS (7 sets, daily range): BP systolic 143–158; BP diastolic 73–85; PULSE 63–77; RESP 17; TEMP 36.4; O2SAT 99–100
[2019-12-21 11:35] LABS: Add Manual Diff / Slide Review NO; Basophils Absolute Auto 0 /uL (0-100); Basophils Percent Auto 1.4 % (0-2); Eosinophils Absolute Auto 100 /uL (0-450); Eosinophils Percent Auto 2.7 % (2-4); Hematocrit 26.7 % (41-53); Hemoglobin 9.1 g/dL (13.5-17.5); Lymphocytes Absolute Auto 1000 /uL (1100-4500); Lymphocytes Percent Auto 29.5 % (25-40); Mean Corpuscular HGB Conc 34.3 % (30-36); Mean Corpuscular Hemoglobin 31.5 PG (26-34); Mean Corpuscular Volume 91.9 fL (80-100); Monocytes Absolute Auto 400 /uL (0-900); Monocytes Percent Auto 10.3 % (3-14); Neutrophils Absolute Auto 2000 /uL (1500-7000); Neutrophils Percent Auto 56.1 % (50-75); Red Cell Distribution Width 24.4 % (11.6-14.8); White Blood Cell Count 3.5 X10^3/uL (4.5-11.0)
[2019-12-21 11:36] LABS: Platelet Count 19 X10^3/uL (150-400)
[2019-12-21 11:46] LABS: BUN Creatinine Ratio 7.8 (6-22); Blood Urea Nitrogen 18 mg/dL (9-20); Calcium 8.7 mg/dL (8.4-10.2); Carbon Dioxide 36 mmol/L (22-32); Chloride 92 mmol/L (98-107); Estimated Glomerular Filt Rate 27.2 mL/min (>60); Glucose 85 mg/dL (80-110); HEMOLYSIS 37 (0-50); Potassium 3.9 mmol/L (3.4-5.1); Sodium 135 mmol/L (137-145)
[2019-12-21 11:51] LABS: Anisocytosis 3+; Platelet Estimate Decreased on smear; Poikilocytosis 2+
--- NOTE | 2019-12-21 12:27 | ED_ITS ---
HPI - General Adult General Chief complaint: Weakness Stated complaint: Abnormal Lab Time Seen by Provider: 12/21/19 11:12 Source: patient and family Mode of arrival: Wheelchair Limitations: no limitations History of Present Illness HPI narrative: Patient is an 84 year old male with myelodysplastic syndrome and end-stage renal disease on dialysis to had dialysis treatment today. He was sent over for evaluation of potential blood transfusion. Patient states that on Saturday last week he had blood drawn with his oncologist and stated that his hemoglobin/hematocrit were low. He received 1 unit packed red blood cells on Saturday secondary to feeling fatigued and tired. He states that after this blood transfusion he did not improve much with regard to his symptoms. He had a full dialysis treatment on that day. He also had a full dialysis treatment today. Was told by his [employer] supervisor that since he was still tired that he should come to the emergency department for evaluation and potential blood transfusion. Related Data Home Medications Medication Instructions Recorded Confirmed lansoprazole 30 mg PO [facility] #0 10/10/12 sildenafil [Viagra] 100 mg PO QDAYP #0 10/10/12 nitroglycerin [Nitrostat] 0.4 mg SUBLINGUAL PRN PRN #0 tab 12/17/12 calcitriol 0.5 mcg PO QDAY #0 08/07/16 sodium bicarbonate 650 mg PO #0 04/24/17 amlodipine 5 mg PO DAILY 12/21/19 12/21/19 carvedilol 12.5 mg PO BID 12/21/19 12/21/19 rosuvastatin 10 mg PO DAILY 12/21/19 12/21/19 Allergies Allergy/AdvReac Type Severity Reaction Status Date / Time Iodinated Contrast Media Allergy Severe kidney Verified 12/21/19 11:56 [IODINATED CONTRAST MEDIA - failure ORAL AND] oxycodone Allergy Mild face Verified 12/21/19 11:56 flushed, feels funny lisinopril AdvReac Severe COUGH, Verified 12/21/19 11:56 facial swelling Review of Systems Constitutional Constitutional: Denies chills, Reports fatigue, Denies fever(s), Denies headache(s), Reports lethargy and Reports malaise ENT Ears, Nose, Mouth, and Throat: Denies headache(s) Cardiovascular Cardiovascular: Denies chest pain and Denies dyspnea Respiratory Respiratory: Denies dyspnea Gastrointestinal Gastrointestinal: Denies abdominal pain, Denies nausea and Denies vomiting Genitourinary Genitourinary: Denies dysuria Genitourinary: Denies dysuria Musculoskeletal Musculoskeletal: Denies arthralgias and Denies myalgias Integumentary/Breasts Skin/Breast: Denies rash Neurologic Neurologic: Denies behavioral changes and Denies headache(s) Psychiatric Psychiatric: Denies behavioral changes Endocrine Endocrine: Reports fatigue Hematologic/Lymphatic Hematologic/Lymphatic: Denies easy bleeding and Denies easy bruising Patient History Medical History CAD (coronary artery disease) (Acute) Colon cancer (Acute) HTN (hypertension) (Acute) Kidney failure (Acute) Surgical History History of open heart surgery (Acute) Hx of CABG (Acute) Social History Smoking Status: Never smoker Smoking Status: Never smoker alcohol intake frequency: other Substance Use Type: does not use Exam Initial Vital Signs Initial Vital Signs: Vital Signs Temperature 97.6 F 12/21/19 10:45 Pulse Rate 77 12/21/19 10:45 Respiratory Rate 17 12/21/19 10:45 Blood Pressure 149/80 H 12/21/19 10:45 Pulse Oximetry 99 12/21/19 10:45 Const General: cooperative and comfortable Limitations: mental status not altered HENMT Head: normal to inspection and normocephalic Resp Effort & Inspection: normal respiratory effort Auscultation: clear to auscultation bilaterally Cardio Rate: regular rate Rhythm: regular rhythm Skin Lesions: no lesions Rashes: no rashes Neuro General: patient alert, patient awake and patient oriented x3 Cognition: normal cognition Speech: speech normal Extrem General: normal to inspection and capillary refill normal Psych Appearance: grossly normal and well kempt Scores GCS [place] coma scale eye opening: Spontaneous [place] coma scale verbal response: Orientated [place] coma scale motor response: Obey commands [place] coma scale total score: 15 Course Orders Ordered: ED Orders 12/21/19 11:23 Basic Metabolic Panel Stat Complete Blood Count AUTO DIFF Stat Type and Screen Stat Vital Signs Vital signs: Vital Signs - 8 hr 12/21/19 10:45 12/21/19 11:05 12/21/19 11:30 Temperature 97.6 F Pulse Rate 77 66 68 Respiratory Rate 17 Blood Pressure 149/80 H Pulse Oximetry 99 100 100 12/21/19 11:39 12/21/19 12:00 12/21/19 12:30 Temperature Pulse Rate 71 75 65 Respiratory Rate Blood Pressure 147/73 H 158/85 H Pulse Oximetry 100 100 99 12/21/19 12:31 Temperature Pulse Rate 63 Respiratory Rate Blood Pressure 143/73 H Pulse Oximetry 99 Medical Decision Making Lab Data Lab results reviewed: Yes I reviewed the patient's lab results. Result diagrams: 12/21/19 11:23 12/21/19 11:23 Labs: Lab Results 12/21/19 12/21/19 12/21/19 Range/Units 11:23 11:23 11:23 WBC 3.5 L (4.5-11.0) X10^3/uL RBC 2.90 L (4.5-5.9) X10^6/uL Hgb 9.1 L (13.5-17.5) g/dL Hct 26.7 L (41-53) % MCV 91.9 (80-100) fL MCH 31.5 (26-34) PG MCHC 34.3 (30-36) % RDW 24.4 H (11.6-14.8) % Plt Count 19 L* (150-400) X10^3/uL Neut % (Auto) 56.1 (50-75) % Lymph % (Auto) 29.5 (25-40) % [place] % (Auto) 10.3 (3-14) % Eos % (Auto) 2.7 (2-4) % Baso % (Auto) 1.4 (0-2) % Neut # (Auto) 2000 (4815-7957) /uL Lymph # (Auto) 1000 L (2913-6709) /uL [place] # (Auto) 400 (0-900) /uL Eos # (Auto) 100 (0-450) /uL Baso # (Auto) 0 (0-100) /uL Platelet Estimate Decreased on smear RBC Morphology Not Reportable Poikilocytosis 2+ H Anisocytosis 3+ H Sodium 135 L (137-145) mmol/L Potassium 3.9 (3.4-5.1) mmol/L Chloride 92 L (98-107) mmol/L Carbon Dioxide 36 H (22-32) mmol/L BUN 18 (9-20) mg/dL Creatinine 2.30 H (0.66-1.25) mg/dL Estimated GFR 27.2 L (>60) mL/min BUN/Creatinine Ratio 7.8 (6-22) Glucose 85 (80-110) mg/dL Calcium 8.7 (8.4-10.2) mg/dL Blood Type A Positive Antibody Screen Negative MDM Narrative Medical decision making narrative: Patient's H&H today is relatively unremarkable. I did discuss with him that this could potentially be due to hemoconcentration given the fact that he does receive dialysis today. I am unsure whether not a blood transfusion with beneficial to him seeing his H&H today and also the fact that he did not improve with the blood transfusion a couple days ago. His electrolytes are unremarkable. I did discuss the case with his oncologist who stated that it is most likely his myelodysplastic syndrome and his dialysis that is causing his symptoms. He already has an appointment tomorrow to have blood drawn to recheck his hemoglobin and hematocrit. We did notice that his platelets were low however he is not having any active bleeding an oncology stated that their threshold for transfusion is 15. I discussed all this with the patient. He expressed understanding and agreement. Will discharge home. He was given return precautions. He expressed understanding and agreement. Discharge Plan Departure Patient Disposition: Home Clinical Impression: End stage renal disease on dialysis Discharge Date/Time: 12/21/19 12:49 Activity Restrictions/Additional Instructions: Recommend that you keep your blood draw appointment that you have tomorrow with your oncologist. Continue all of your medications as directed. Return to the emergency department for any new or worsening symptoms Prescriptions: No Action sildenafil [Viagra] 100 MG tablet 100 mg PO QDAYP Qty: 0 RF: 0 lansoprazole 30 MG capsule,delayed release(DR/EC) 30 mg PO [facility] Qty: 0 RF: 0 nitroglycerin [Nitrostat] 0.4 MG tablet, sublingual 0.4 mg Sublingual PRN PRN (Reason: Chest Pain) Qty: 0 RF: 0 calcitriol 0.5 MCG capsule 0.5 mcg PO QDAY Qty: 0 RF: 0 sodium bicarbonate 650 MG tablet 650 mg PO Qty: 0 RF: 0 carvedilol 12.5 mg tablet 12.5 mg PO BID RF: 0 amlodipine 5 mg tablet 5 mg PO DAILY RF: 0 rosuvastatin 10 mg tablet 10 mg PO DAILY RF: 0 Referrals: Gino Francis MD [Primary Care Provider] -
== END 2019-12-21 12:49 | disposition home or self-care (01) ==
PROVIDERS: Emergency Provider Emergency Medicine; Family Provider Internal Medicine; PCP Internal Medicine
DX: N18.6 End stage renal disease (principal); Z99.2 Dependence on renal dialysis; R53.83 Other fatigue
CPT/HCPCS: 36415; 80048; 85025; 86850; 86900; 86901; 99283

== ENCOUNTER 2020-01-04 16:57 | Emergency (ER) | payer MEDICARE, BC, OTHER, SELFPAY ==
[2020-01-04] VITALS (24 sets, daily range): BP systolic 114–150; BP diastolic 70–88; PULSE 70–78; RESP 15–36; TEMP 36.5–37.2; O2SAT 95–99
--- NOTE | 2020-01-04 17:40 | DI.RAD.S_ITS ---
PROCEDURE: XR CHEST 1V INDICATIONS: dizzy/ chest pain TECHNIQUE: One view of the chest was acquired. COMPARISON: [facility], , XR CHEST 1V, 07/24/2017, 6:03. FINDINGS: Surgical changes and devices: Median sternotomy. Lungs and pleura: Moderate diffuse reticulonodular pulmonary density. No pleural effusions or pneumothorax. Mediastinum: Mediastinal contours appear normal. Heart size is enlarged. Bones and chest wall: No suspicious bony lesions. Overlying soft tissues appear unremarkable. IMPRESSION: Moderate atypical pneumonia. Cardiomegaly. Dictated by: Delilah Seaman M.D. on 01/04/2020 at 19:06 Approved by: Delilah Seaman M.D. on 01/04/2020 at 19:06
--- NOTE | 2020-01-04 17:41 | DI.CT.S_ITS ---
PROCEDURE: CT HEAD/BRAIN WO CON INDICATIONS: dizzy TECHNIQUE: Noncontrast 4.5 mm thick angled axial sections acquired from the foramen magnum to the vertex, with coronal and sagittal reformats. For radiation dose reduction, the following was used: automated exposure control, adjustment of mA and/or kV according to patient size. COMPARISON: [facility], CT, HEAD WITHOUT CONTRAST, 08/04/2014, 18:11. FINDINGS: Image quality: Excellent. CSF spaces: Basal cisterns are patent. No extra-axial fluid collections. The ventricles are symmetric in size and shape. Brain: No intracranial bleeds or masses. There is cerebral volume loss for age, with resultant ventricular and sulcal prominence. There are periventricular and deep white matter chronic small vessel ischemic changes. There is intracranial internal carotid artery atherosclerosis. Skull and face: Calvarium and visualized facial bones appear intact, without suspicious lesions. Sinuses: Visualized sinuses and mastoids are clear. IMPRESSION: No acute intracranial abnormality. Volume loss and small vessel ischemic disease. Dictated by: Delilah Seaman M.D. on 01/04/2020 at 19:12 Approved by: Delilah Seaman M.D. on 01/04/2020 at 19:13
[2020-01-04 18:11] LABS: INR 1.5 (0.9-1.3); Prothrombin Time 16.8 SECONDS (10.1-12.7)
[2020-01-04 18:18] LABS: Lactate (Lactic Acid) 1.7 mmol/L (0.7-2.1)
[2020-01-04 18:19] LABS: Alanine Aminotransferase 18 IU/L (<50); Albumin 4.1 g/dL (3.5-5.0); Albumin Globulin Ratio 1.4 (1.0-2.8); Alkaline Phosphatase 62 U/L (38-126); Aspartate Aminotransferase 24 IU/L (17-59); BUN Creatinine Ratio 7.9 (6-22); Bilirubin Total 2.1 mg/dL (0.2-1.3); Blood Urea Nitrogen 23 mg/dL (9-20); Calcium 9.3 mg/dL (8.4-10.2); Carbon Dioxide 35 mmol/L (22-32); Chloride 93 mmol/L (98-107); Estimated Glomerular Filt Rate 20.8 mL/min (>60); Globulin 2.9 g/dL (1.7-4.1); Glucose 108 mg/dL (80-110); HEMOLYSIS < 15 (0-50); Potassium 4.3 mmol/L (3.4-5.1); Sodium 134 mmol/L (137-145)
[2020-01-04 18:26] LABS: Add Manual Diff / Slide Review SLIDE REVIEW; Basophils Absolute Auto 0 /uL (0-100); Basophils Percent Auto 1.1 % (0-2); Eosinophils Absolute Auto 0 /uL (0-450); Eosinophils Percent Auto 0.8 % (2-4); Hematocrit 21.9 % (41-53); Hemoglobin 7.3 g/dL (13.5-17.5); Lymphocytes Absolute Auto 700 /uL (1100-4500); Lymphocytes Percent Auto 25.3 % (25-40); Mean Corpuscular HGB Conc 33.6 % (30-36); Mean Corpuscular Hemoglobin 31.7 PG (26-34); Mean Corpuscular Volume 94.4 fL (80-100); Monocytes Absolute Auto 300 /uL (0-900); Monocytes Percent Auto 11.4 % (3-14); Neutrophils Absolute Auto 1800 /uL (1500-7000); Neutrophils Percent Auto 61.4 % (50-75); Platelet Count 24 X10^3/uL (150-400); Red Blood Cell Count 2.31 X10^6/uL (4.5-5.9); Red Cell Distribution Width 27.8 % (11.6-14.8); White Blood Cell Count 2.9 X10^3/uL (4.5-11.0)
[2020-01-04 18:27] LABS: Anisocytosis 3+; Basophilic Stippling 1+; Platelet Estimate Decreased on smear; Platelet Morphology Comment NOTE
[2020-01-04 18:28] LABS: Macrocytosis 2+; Polychromasia 2+; Schistocytes 2+; Spherocytes 2+; Tear Drop Cells 1+
[2020-01-04 18:35] LABS: Procalcitonin 1.52 ng/mL (<0.5)
--- NOTE | 2020-01-04 18:56 | ED_ITS ---
HPI - General Adult General Chief complaint: Dizziness Stated complaint: Dizzy, Unsteady Time Seen by Provider: 01/04/20 17:58 Source: patient, family () and EMS Mode of arrival: EMS Limitations: no limitations History of Present Illness HPI narrative: Patient is a 84-year-old male who I evaluated in the emergency department in the past. He has myelodysplastic syndrome. He also has end-stage renal disease on dialysis. He does still produce urine. He had dialysis today. This was his regularly scheduled dialysis day which is Saturday and Saturday. Patient has had multiple blood transfusions in the past. He states that he normally gets his blood drawn the day after dialysis and then his providers make a decision as to whether not he needs a blood transfusion. He states that dialysis today went well. He does report that over the past 4 5 days he has become very fatigued and lack of energy and decreased appetite. He also reports that he has been having some chest pain recently. He was having some chest pain when I spoke with him during this ED visit. Reports no shortness of breath. Was sent here for potential blood transfusion from the dialysis center. Related Data Home Medications Medication Instructions Recorded Confirmed lansoprazole 30 mg PO [facility] #0 10/10/12 sildenafil [Viagra] 100 mg PO QDAYP #0 10/10/12 nitroglycerin [Nitrostat] 0.4 mg SUBLINGUAL PRN PRN #0 tab 12/17/12 calcitriol 0.5 mcg PO QDAY #0 08/07/16 sodium bicarbonate 650 mg PO #0 04/24/17 amlodipine 5 mg PO DAILY 12/21/19 12/21/19 carvedilol 12.5 mg PO BID 12/21/19 12/21/19 rosuvastatin 10 mg PO DAILY 12/21/19 12/21/19 Allergies Allergy/AdvReac Type Severity Reaction Status Date / Time Iodinated Contrast Media Allergy Severe kidney Verified 12/21/19 11:56 [IODINATED CONTRAST MEDIA - failure ORAL AND] oxycodone Allergy Mild face Verified 12/21/19 11:56 flushed, feels funny lisinopril AdvReac Severe COUGH, Verified 12/21/19 11:56 facial swelling Review of Systems Constitutional Constitutional: Reports fatigue, Denies fever(s), Reports lethargy, Reports malaise and Reports weakness Eyes Eyes: Denies change in vision ENT Ears, Nose, Mouth, and Throat: Denies vertigo, Denies dizziness and Denies sore throat Cardiovascular Cardiovascular: Reports chest pain and Denies dyspnea Respiratory Respiratory: Denies cough and Denies dyspnea Gastrointestinal Gastrointestinal: Denies abdominal pain, Denies nausea and Denies vomiting Genitourinary Comments: No change in his urinary status Musculoskeletal Musculoskeletal: Denies arthralgias, Denies myalgias and Denies tingling Integumentary/Breasts Skin/Breast: Denies rash Neurologic Neurologic: Denies behavioral changes, Denies vertigo, Denies dizziness, Denies localized weakness, Denies tingling and Reports weakness Psychiatric Psychiatric: Denies behavioral changes Endocrine Endocrine: Reports fatigue Hematologic/Lymphatic Hematologic/Lymphatic: Denies easy bleeding and Denies easy bruising Allergic/Immunologic Allergic/Immunologic: Denies urticaria Patient History Medical History CAD (coronary artery disease) (Acute) Colon cancer (Acute) HTN (hypertension) (Acute) Kidney failure (Acute) Surgical History History of open heart surgery (Acute) Hx of CABG (Acute) Social History Smoking Status: Never smoker Smoking Status: Never smoker alcohol intake frequency: other Substance Use Type: does not use Exam Initial Vital Signs Initial Vital Signs: Vital Signs Pulse Rate 72 01/04/20 17:00 Respiratory Rate 18 01/04/20 17:00 Blood Pressure 114/82 01/04/20 17:00 Const General: cooperative, comfortable and frail appearing Limitations: mental status not altered [facility] Head: normal to inspection and normocephalic Resp Effort & Inspection: normal respiratory effort Auscultation: clear to auscultation bilaterally Cardio Rate: regular rate Rhythm: regular rhythm GI Inspection: non-distended Palpation: soft Skin Lesions: no lesions Rashes: no rashes Neuro General: patient alert, patient awake and patient oriented x3 Cognition: normal cognition Gait: normal gait Extrem General: normal to inspection and capillary refill normal Psych Appearance: grossly normal and well kempt Scores GCS Chirag coma scale eye opening: Spontaneous Chirag coma scale verbal response: Orientated [place] coma scale motor response: Obey commands Chirag coma scale total score: 15 Course Orders Ordered: ED Orders 01/04/20 21:03 Troponin & CK Cardiac Panel Stat 01/04/20 22:25 Hemoglobin and Hematocrit Stat 01/05/20 02:50 Hemoglobin and Hematocrit Stat Troponin & CK Cardiac Panel Stat Vital Signs Vital signs: Vital Signs - 8 hr 01/04/20 21:00 01/04/20 21:15 01/04/20 21:30 Temperature 98.9 F Pulse Rate 74 74 74 Respiratory Rate 20 22 24 Blood Pressure 135/80 143/88 H 141/83 H Pulse Oximetry 97 96 97 01/04/20 21:45 01/04/20 22:00 01/04/20 22:30 Temperature Pulse Rate 74 74 74 Respiratory Rate 22 20 20 Blood Pressure 133/86 142/77 H 149/84 H Pulse Oximetry 96 96 96 01/04/20 23:34 01/04/20 23:35 01/04/20 23:46 Temperature 97.7 F Pulse Rate 70 74 73 Respiratory Rate 22 15 25 H Blood Pressure 144/83 H 144/83 H 145/86 H Pulse Oximetry 95 96 01/05/20 00:00 01/05/20 00:02 01/05/20 00:05 Temperature 98.1 F Pulse Rate 73 75 Respiratory Rate 23 26 H Blood Pressure 152/86 H Pulse Oximetry 96 96 01/05/20 00:15 01/05/20 00:30 01/05/20 00:45 Temperature Pulse Rate 76 76 74 Respiratory Rate 23 25 H 29 H Blood Pressure 138/81 144/89 H 142/92 H Pulse Oximetry 95 94 95 01/05/20 01:00 01/05/20 01:01 01/05/20 01:03 Temperature 98.1 F Pulse Rate 73 74 74 Respiratory Rate 24 26 H 16 Blood Pressure 141/90 H 143/89 H 143/89 H Pulse Oximetry 95 95 01/05/20 01:10 01/05/20 01:31 01/05/20 02:00 Temperature Pulse Rate 81 83 75 Respiratory Rate 31 H 24 Blood Pressure 128/72 Pulse Oximetry 95 95 94 01/05/20 02:30 01/05/20 03:00 01/05/20 03:30 Temperature Pulse Rate 75 74 76 Respiratory Rate 24 30 H 23 Blood Pressure Pulse Oximetry 93 95 95 01/05/20 04:00 Temperature Pulse Rate 74 Respiratory Rate 24 Blood Pressure Pulse Oximetry 94 Medical Decision Making Medical Records Medical records reviewed: Yes I reviewed the patient's medical records. Lab Data Lab results reviewed: Yes I reviewed the patient's lab results. Result diagrams: 01/05/20 02:50 01/04/20 17:55 Labs: Lab Results 01/04/20 01/04/20 01/04/20 Range/Units 17:55 17:55 17:55 WBC 2.9 L (4.5-11.0) X10^3/uL RBC 2.31 L (4.5-5.9) X10^6/uL Hgb 7.3 L (13.5-17.5) g/dL Hct 21.9 L (41-53) % MCV 94.4 (80-100) fL MCH 31.7 (26-34) PG MCHC 33.6 (30-36) % RDW 27.8 H (11.6-14.8) % Plt Count 24 L* (150-400) X10^3/uL Neut % (Auto) 61.4 (50-75) % Lymph % (Auto) 25.3 (25-40) % [place] % (Auto) 11.4 (3-14) % Eos % (Auto) 0.8 L (2-4) % Baso % (Auto) 1.1 (0-2) % Neut # (Auto) 1800 (1132-8992) /uL Lymph # (Auto) 700 L (3675-0683) /uL [place] # (Auto) 300 (0-900) /uL Eos # (Auto) 0 (0-450) /uL Baso # (Auto) 0 (0-100) /uL Platelet Estimate Decreased on smear Plt Morphology Comment Note RBC Morphology See below Polychromasia 2+ H Basophilic Stippling 1+ H Anisocytosis 3+ H Macrocytosis 2+ H Spherocytes 2+ H Tear Drop Cells 1+ H Schistocytes 2+ H PT 16.8 H (10.1-12.7) SECONDS INR 1.5 H (0.9-1.3) Sodium 134 L (137-145) mmol/L Potassium 4.3 (3.4-5.1) mmol/L Chloride 93 L (98-107) mmol/L Carbon Dioxide 35 H (22-32) mmol/L BUN 23 H (9-20) mg/dL Creatinine 2.90 H (0.66-1.25) mg/dL Estimated GFR 20.8 L (>60) mL/min BUN/Creatinine Ratio 7.9 (6-22) Glucose 108 (80-110) mg/dL Lactate (0.7-2.1) mmol/L Calcium 9.3 (8.4-10.2) mg/dL Total Bilirubin 2.1 H (0.2-1.3) mg/dL AST 24 (17-59) IU/L ALT 18 (<50) IU/L Alkaline Phosphatase 62 (38-126) U/L Total Creatine Kinase (55-170) U/L CK-MB (CK-2) CK-MB (CK-2) Rel Index Troponin I 0.789 H* (0.01-0.034) ng/mL Total Protein 7.0 (6.3-8.2) g/dL Albumin 4.1 (3.5-5.0) g/dL Globulin 2.9 (1.7-4.1) g/dL Albumin/Globulin Ratio 1.4 (1.0-2.8) Procalcitonin (<0.5) ng/mL COVID-19 PCR (Negative) Blood Type Antibody Screen Crossmatch 01/04/20 01/04/20 01/04/20 Range/Units 17:55 17:55 19:02 WBC (4.5-11.0) X10^3/uL RBC (4.5-5.9) X10^6/uL Hgb (13.5-17.5) g/dL Hct (41-53) % MCV (80-100) fL MCH (26-34) PG MCHC (30-36) % RDW (11.6-14.8) % Plt Count (150-400) X10^3/uL Neut % (Auto) (50-75) % Lymph % (Auto) (25-40) % [place] % (Auto) (3-14) % Eos % (Auto) (2-4) % Baso % (Auto) (0-2) % Neut # (Auto) (9338-0627) /uL Lymph # (Auto) (9641-1468) /uL [place] # (Auto) (0-900) /uL Eos # (Auto) (0-450) /uL Baso # (Auto) (0-100) /uL Platelet Estimate Plt Morphology Comment RBC Morphology Polychromasia Basophilic Stippling Anisocytosis Macrocytosis Spherocytes Tear Drop Cells Schistocytes PT (10.1-12.7) SECONDS INR (0.9-1.3) Sodium (137-145) mmol/L Potassium (3.4-5.1) mmol/L Chloride (98-107) mmol/L Carbon Dioxide (22-32) mmol/L BUN (9-20) mg/dL Creatinine (0.66-1.25) mg/dL Estimated GFR (>60) mL/min BUN/Creatinine Ratio (6-22) Glucose (80-110) mg/dL Lactate 1.7 (0.7-2.1) mmol/L Calcium (8.4-10.2) mg/dL Total Bilirubin (0.2-1.3) mg/dL AST (17-59) IU/L ALT (<50) IU/L Alkaline Phosphatase (38-126) U/L Total Creatine Kinase (55-170) U/L CK-MB (CK-2) CK-MB (CK-2) Rel Index Troponin I (0.01-0.034) ng/mL Total Protein (6.3-8.2) g/dL Albumin (3.5-5.0) g/dL Globulin (1.7-4.1) g/dL Albumin/Globulin Ratio (1.0-2.8) Procalcitonin 1.52 H (<0.5) ng/mL COVID-19 PCR (Negative) Blood Type A Positive Antibody Screen Negative Crossmatch See Detail 01/04/20 01/04/20 01/04/20 Range/Units 19:36 21:03 22:25 WBC (4.5-11.0) X10^3/uL RBC (4.5-5.9) X10^6/uL Hgb 8.2 L (13.5-17.5) g/dL Hct 24.5 L (41-53) % MCV (80-100) fL MCH (26-34) PG MCHC (30-36) % RDW (11.6-14.8) % Plt Count (150-400) X10^3/uL Neut % (Auto) (50-75) % Lymph % (Auto) (25-40) % [place] % (Auto) (3-14) % Eos % (Auto) (2-4) % Baso % (Auto) (0-2) % Neut # (Auto) (5156-3714) /uL Lymph # (Auto) (2645-5908) /uL [place] # (Auto) (0-900) /uL Eos # (Auto) (0-450) /uL Baso # (Auto) (0-100) /uL Platelet Estimate Plt Morphology Comment RBC Morphology Polychromasia Basophilic Stippling Anisocytosis Macrocytosis Spherocytes Tear Drop Cells Schistocytes PT (10.1-12.7) SECONDS INR (0.9-1.3) Sodium (137-145) mmol/L Potassium (3.4-5.1) mmol/L Chloride (98-107) mmol/L Carbon Dioxide (22-32) mmol/L BUN (9-20) mg/dL Creatinine (0.66-1.25) mg/dL Estimated GFR (>60) mL/min BUN/Creatinine Ratio (6-22) Glucose (80-110) mg/dL Lactate (0.7-2.1) mmol/L Calcium (8.4-10.2) mg/dL Total Bilirubin (0.2-1.3) mg/dL AST (17-59) IU/L ALT (<50) IU/L Alkaline Phosphatase (38-126) U/L Total Creatine Kinase 57 (55-170) U/L CK-MB (CK-2) TNP CK-MB (CK-2) Rel Index TNP Troponin I 0.694 H* (0.01-0.034) ng/mL Total Protein (6.3-8.2) g/dL Albumin (3.5-5.0) g/dL Globulin (1.7-4.1) g/dL Albumin/Globulin Ratio (1.0-2.8) Procalcitonin (<0.5) ng/mL COVID-19 PCR Negative (Negative) Blood Type Antibody Screen Crossmatch 01/05/20 01/05/20 Range/Units 02:50 02:50 WBC (4.5-11.0) X10^3/uL RBC (4.5-5.9) X10^6/uL Hgb 9.1 L (13.5-17.5) g/dL Hct 26.6 L (41-53) % MCV (80-100) fL MCH (26-34) PG MCHC (30-36) % RDW (11.6-14.8) % Plt Count (150-400) X10^3/uL Neut % (Auto) (50-75) % Lymph % (Auto) (25-40) % [place] % (Auto) (3-14) % Eos % (Auto) (2-4) % Baso % (Auto) (0-2) % Neut # (Auto) (1465-7910) /uL Lymph # (Auto) (3156-9804) /uL [place] # (Auto) (0-900) /uL Eos # (Auto) (0-450) /uL Baso # (Auto) (0-100) /uL Platelet Estimate Plt Morphology Comment RBC Morphology Polychromasia Basophilic Stippling Anisocytosis Macrocytosis Spherocytes Tear Drop Cells Schistocytes PT (10.1-12.7) SECONDS INR (0.9-1.3) Sodium (137-145) mmol/L Potassium (3.4-5.1) mmol/L Chloride (98-107) mmol/L Carbon Dioxide (22-32) mmol/L BUN (9-20) mg/dL Creatinine (0.66-1.25) mg/dL Estimated GFR (>60) mL/min BUN/Creatinine Ratio (6-22) Glucose (80-110) mg/dL Lactate (0.7-2.1) mmol/L Calcium (8.4-10.2) mg/dL Total Bilirubin (0.2-1.3) mg/dL AST (17-59) IU/L ALT (<50) IU/L Alkaline Phosphatase (38-126) U/L Total Creatine Kinase 56 (55-170) U/L CK-MB (CK-2) TNP CK-MB (CK-2) Rel Index TNP Troponin I 0.635 H* (0.01-0.034) ng/mL Total Protein (6.3-8.2) g/dL Albumin (3.5-5.0) g/dL Globulin (1.7-4.1) g/dL Albumin/Globulin Ratio (1.0-2.8) Procalcitonin (<0.5) ng/mL COVID-19 PCR (Negative) Blood Type Antibody Screen Crossmatch Imaging Data Chest x-ray: Radiologist's Impression: [address] [address] XRay Report Signed Patient: Derrick Evans JMR#: [id number] : 5Acct:[id number] Age/Sex: 84 / MDate of Service: 01/04/20 Loc: ED Accession Number: [id number] Procedure: XR chest 1V Ordering Provider: Jess Garcia D.O. PROCEDURE: XR CHEST 1V INDICATIONS: dizzy/ chest pain TECHNIQUE: One view of the chest was acquired. COMPARISON: [facility], CR, XR CHEST 1V, 07/24/2017, 6:03. FINDINGS: Surgical changes and devices: Median sternotomy. Lungs and pleura: Moderate diffuse reticulonodular pulmonary density. No pleural effusions or pneumothorax. Mediastinum: Mediastinal contours appear normal. Heart size is enlarged. Bones and chest wall: No suspicious bony lesions. Overlying soft tissues appear unremarkable. IMPRESSION: Moderate atypical pneumonia. Cardiomegaly. Dictated by: Delilah Seaman M.D. on 01/04/2020 at 19:06 Approved by: Delilah Seaman M.D. on 01/04/2020 at 19:06 CT scan - head: Radiologist's Impression: [address] [address] [address] Scan Report Signed Patient: Derrick Evans JMR#: [id number] : 5Acct:[id number] Age/Sex: 84 / MDate of Service: 01/04/20 Loc: ED Accession Number: [id number] Procedure: CT head/brain wo con Ordering Provider: Jess Garcia D.O. PROCEDURE: CT HEAD/BRAIN WO CON INDICATIONS: dizzy TECHNIQUE: Noncontrast 4.5 mm thick angled axial sections acquired from the foramen magnum to the vertex, with coronal and sagittal reformats. For radiation dose reduction, the following was used: automated exposure control, adjustment of mA and/or kV according to patient size. COMPARISON: [facility], CT, HEAD WITHOUT CONTRAST, 08/04/2014, 18:11. FINDINGS: Image quality: Excellent. CSF spaces: Basal cisterns are patent. No extra-axial fluid collections. The ventricles are symmetric in size and shape. Brain: No intracranial bleeds or masses. There is cerebral volume loss for age, with resultant ventricular and sulcal prominence. There are periventricular and deep white matter chronic small vessel ischemic changes. There is intracranial internal carotid artery atherosclerosis. Skull and face: Calvarium and visualized facial bones appear intact, without suspicious lesions. Sinuses: Visualized sinuses and mastoids are clear. IMPRESSION: No acute intracranial abnormality. Volume loss and small vessel ischemic disease. Dictated by: Delilah Seaman M.D. on 01/04/2020 at 19:12 Approved by: Delilah Seaman M.D. on 01/04/2020 at 19:13 ECG Data Attestation: I personally reviewed and interpreted this ECG as follows: Prior ECG tracings: available for review Interpretation: Atrial fibrillation Ventricular rate of 75 Normal QRS Normal QTC Inverted T-waves in V5 V6 Reported as a similar EKG to priors by Dr. Deluca with Cardiology MDM Narrative Medical decision making narrative: Patient does look somewhat more ill-appearing than when I saw him approximately 2 weeks ago. He did receive dialysis today. He was anemic today. Patient was transfused 2 units of packed red blood cells. After the 1st unit he was evaluated he was having no shortness of breath. Despite the chest x-ray of low suspicion for pneumonia. Will hold on any antibiotics. His EKG today per report after discussion with Dr. Gonzalez at [facility] appears to show no new symptoms. Patient's initial troponin elevated. This is also in the setting of chest discomfort. Had a long discussion with Dr. Deluca regarding the symptoms. He stated that the elevated troponin and could very well be secondary to a cardiac event for could also be secondary to demand ischemia and also secondary to his chronic renal disease. [facility] has no cardiovascular beds available. Dr. Deluca did recommend patient be transported for further evaluation although he felt it would be unlikely that he would receive any cardiac catheterization unless his symptoms worsened. I do feel sending him to [facility] is most ideal given the fact this is where his astrochemist, oncologist, maid housekeeper are also located. After discussion with Dr. Deluca the decision was made to keep the patient here in the emergency department. We will keep trending his troponins. If the troponins elevate then potentially a bed arrangement can be made. If his troponin stay stable or decrease then we can re-evaluate in the morning. I did discuss this with the patient. He expressed understanding. Patient stated the emergency department overnight awaiting transport. He received 2 units of blood and this did increase his hemoglobin and hematocrit appropriately. Repeat troponins over the next several hours show a decrease in the level. After the 2nd blood transfusion there was no signs of fluid overload. All of his presenting symptoms were resolved. He states that he feels fine/normal. I then discussed the case again with Dr. Deluca with cardiology who stated that since his troponin was not elevating and that his chest pain was gone and he had no changes on his EKG in the setting of his chronic kidney disease and other issues that the elevated troponin is most likely a demand versus his chronic kidney disease. Dr. Deluca states the patient does need a outpatient stress test. I did discuss this with the patient. He states that he would like to go home. He understands the elevated troponin and will we were concerned about this. He has good contact with his astrochemist. Informed him that he needed to contact his astrochemist today for an outpatient stress test. He was given return precautions and follow-up instructions. He expressed understanding and agreement. Critical Care Time Critical Care Time Critical Care Time: Yes Total Critical Care Time: 35 Attestation: The high probability of a clinically significant, sudden or life threatening deterioration of the cardiovascular system(s) required my full and direct attention, intervention and personal management. The aggregate critical care time was [35] minutes. This time is in addition to time spent performing reported procedures but includes the following: [X] Data Review and interpretation [X] Patient assessment and monitoring of vital signs [X] Documentation [X] Medication orders and management Discharge Plan Departure Patient Disposition: Home Clinical Impression: End stage renal disease on dialysis, Elevated troponin Anemia Qualifiers: Anemia type: unspecified type Qualified Code(s): D64.9 - Anemia, unspecified Instructions: Anemia Activity Restrictions/Additional Instructions: It is important that you keep all of your scheduled medical appointments. Continue all of your medications as directed. I do recommend that today you contact your astrochemist to schedule a outpatient stress test. Return to the emergency department for any new or worsening symptoms. Prescriptions: No Action sildenafil [Viagra] 100 MG tablet 100 mg PO QDAYP Qty: 0 RF: 0 lansoprazole 30 MG capsule,delayed release(DR/EC) 30 mg PO [facility] Qty: 0 RF: 0 nitroglycerin [Nitrostat] 0.4 MG tablet, sublingual 0.4 mg Sublingual PRN PRN (Reason: Chest Pain) Qty: 0 RF: 0 calcitriol 0.5 MCG capsule 0.5 mcg PO QDAY Qty: 0 RF: 0 sodium bicarbonate 650 MG tablet 650 mg PO Qty: 0 RF: 0 carvedilol 12.5 mg tablet 12.5 mg PO BID RF: 0 amlodipine 5 mg tablet 5 mg PO DAILY RF: 0 rosuvastatin 10 mg tablet 10 mg PO DAILY RF: 0 Referrals: Gino Francis MD [Primary Care Provider] -
[2020-01-04 19:00] LABS: Troponin I 0.789 ng/mL (0.01-0.034)
[2020-01-04 20:06] LABS: COVID19 -Nasal RAPID Negative (Negative)
[2020-01-04 21:22] LABS: Creatine Kinase 57 U/L (55-170)
[2020-01-04 21:38] LABS: Troponin I 0.694 ng/mL (0.01-0.034)
[2020-01-04 22:39] LABS: Hematocrit 24.5 % (41-53); Hemoglobin 8.2 g/dL (13.5-17.5)
[2020-01-05] VITALS (19 sets, daily range): BP systolic 128–156; BP diastolic 72–92; PULSE 73–83; RESP 16–31; TEMP 36.7–36.9; O2SAT 92–97
[2020-01-05 03:02] LABS: Hematocrit 26.6 % (41-53); Hemoglobin 9.1 g/dL (13.5-17.5)
[2020-01-05 03:10] LABS: Creatine Kinase 56 U/L (55-170)
[2020-01-05 03:24] LABS: Troponin I 0.635 ng/mL (0.01-0.034)
== END 2020-01-05 06:19 | disposition home or self-care (01) ==
PROVIDERS: Emergency Medicine; Emergency Provider Emergency Medicine; Family Provider Internal Medicine; PCP Internal Medicine
DX: N18.6 End stage renal disease (principal); Z99.2 Dependence on renal dialysis; D64.9 Anemia, unspecified; R07.9 Chest pain, unspecified; R77.8 Other specified abnormalities of plasma proteins; R42 Dizziness and giddiness
CPT/HCPCS: 36415; 36430; 70450; 71045; 80053; 82550; 83605; 84145; 84484; 85014; 85018; 85025; 85610; 86850; 86900; 86901; 87635; 93005; 99285; 99291; P9016